=== PATIENT | female | born 1970 | race Hispanic/Latino ===

== ENCOUNTER → 2019-12-25 | Day surgery (SDC) | payer OTHER ==
--- NOTE | 2019-12-22 14:09 | Diagnostic Imaging Report ---
Exam: KUB - 2 views Indication: Preoperative Comparison: None Findings: Bilateral renal calculi measure up to 5 mm at the right lower pole, 9 mm at the left upper pole, 6 mm at the left mid pole, and 10 mm at the left lower pole. Nonobstructive bowel gas pattern. No free air. No acute osseous injury. Partially visualized lung bases are clear. Impression: Bilateral renal calculi measure up to 5 mm on the right and 10 mm on the left. Signed by: Fritz Clemente MD on 12/22/2019 2:05 PM
[~2019-12-25] MED LIST: B&O 60MG R/S 60 MG SUPP PR ONE; CEFTRIAXONE SOD 1 GM/NS 50 ML 50 ML IV ONE; DEXAMETHASONE SOD PHOS INJ 4 MG/ML VIAL ONE; FENTANYL CITRATE/PF 100MCG/2 ML INJ ONE; IOPAMIDOL 300MG/ML 50ML INFUS..BTL IV ONE; LIDOCAINE HCL 2% LOCAL INJ 5 ML SDV VIAL INJ ONE; MIDAZOLAM HCL 2 MG/2 ML VIAL ONE; ONDANSETRON HCL INJ 2MG/ML 2ML 2 MG/ML VIAL ONE; PROPOFOL IV EMULSION 10 MG/ML 20 ML VIAL ONE; SEVOFLURANE INHAL SOLN 250 ML PEN BTL ONE; VENLAFAXINE H37.5 M2 PO
[2019-12-25 13:20] VITALS: BP 137/84
--- NOTE | 2020-02-08 09:37 | Operative Report ---
DATE OF PROCEDURE: 12/25/2019 SURGEON: Jf Walton MD PREOPERATIVE DIAGNOSES: 1. Left nephrolithiasis. 2. Left renal colic. 3. Urinary tract infections. 4. Hematuria. POSTOPERATIVE DIAGNOSES: 1. Left nephrolithiasis. 2. Left renal colic. 3. Urinary tract infections. 4. Hematuria. 5. Grade 1 cystocele. 6. Grade 1 rectocele. OPERATION PERFORMED: Note, these were all staged procedures as part of multi-staged and multi-step process in managing the patient's urolithiasis. 1. Left-sided extracorporeal shockwave lithotripsy (separate procedure performed for the left-sided stone done from separate approach). 2. Cystourethroscopy with bilateral ureteral catheterization and retrograde ureteropyelography (separate procedure performed for hematuria and urinary tract infections). 3. Interpretation of retrograde ureteropyelography. 4. Supervision of fluoroscopy, no radiologist present. 5. Cystourethroscopy with insertion of left indwelling ureteral stent (separate procedure performed to prevent renal colic). 6. Pelvic examination under anesthesia. ANESTHESIA: General. COMPLICATIONS: None. CLINICAL SUMMARY: Cecy Guo is a 49-year-old woman with the above preoperative diagnoses. She is brought for the above procedures. She is aware of the risks of bleeding, infection, injury to adjacent structures, need for additional procedures and elected to proceed. OPERATIVE PROCEDURE IN DETAIL: Informed consent was verified. Cecy Guo was properly identified, taken to the operating room, placed on the cystoscopy table in lithotripsy table in the supine position. Anesthesia was uneventfully begun. The patient's left nephrolithiasis was localized with biplanar fluoroscopy. A total of 3000 shocks were delivered to the 2-stone clusters with fragmentation noted. The patient was then carefully and gently repositioned in dorsal lithotomy position with all pressure points were well padded. Her genitalia were prepared and draped in usual sterile fashion. The cystoscope sheath with obturator in place was atraumatically inserted into the patient's urethra and bladder was drained. Panendoscopy revealed no suspicious mucosal lesions, no tumors, no stones, and no diverticula. Normally positioned configured ureteral orifices were identified. The ureteral catheter was used to cannulate the left ureter and retrograde ureteropyelograms were performed. Then with cystoscopic fluoroscopic guidance, a left-sided indwelling ureteral stent was then placed, it was coiled and the patient's kidney as well as the patient's bladder. The retaining suture was cut short. A ureteral catheter was used to cannulate the right ureter and retrograde ureteropyelograms were performed. Interpretation of retrograde ureteropyelography contrast was instilled in retrograde fashion bilaterally. There were filling defects corresponding to the 2-stone clusters that we lithotripsied in the left hand side along with filling defects that we presumed were due to blood clots. On right hand side, we also identified a stone that we did not treat at this time. Unobstructed drainage was observed fluoroscopically on the right-hand side. The stent was in good position and coiled the patient's kidney as well as the patient's bladder at the end of the case. The patient's bladder was drained. Cystoscope was withdrawn. Pelvic examination revealed a grade 1 cystocele and grade 1 rectocele. No abnormal palpable pelvic masses could be appreciated. There were no obvious mucosal lesions. The patient was then uneventfully reversed from anesthesia and taken to the recovery room in stable condition. There were no complications to the procedure. She tolerated the procedure well. Plans will be to return the patient to the operating room for a right ESWL in conjunction with a left ureteroscopy with holmium laser standby. Jf Walton MD [place]/[facility]NET[facility] /[id number]
== END | disposition home or self-care (01) ==
LOC: OR 07:25 → EDSEX 11:00
PROVIDERS: ATTEND Urology
DX: N20.0 Calculus of kidney (principal); N23 Unspecified renal colic; N39.0 Urinary tract infection, site not specified; R31.9 Hematuria, unspecified; N81.10 Cystocele, unspecified; N81.6 Rectocele; Z11.59 Encounter for screening for other viral diseases; Z87.442 Personal history of urinary calculi; Z01.812 Encounter for preprocedural laboratory examination; Z01.818 Encounter for other preprocedural examination
CPT/HCPCS: 50590; 52332; 74018; 74420; 81025; 87635; C1758; C2617; J0696; J1100; J2001; J2250; J2405; J2704; J3010; Q9967; U0002

== ENCOUNTER → 2020-03-04 | Day surgery (SDC) | payer OTHER ==
--- NOTE | 2020-02-29 11:44 | Diagnostic Imaging Report ---
Abdomen one view KUB INDICATION: ^[id number] ^1100 ^PRE-OP Comparison: 12/22/2019. Discussion: Interval placement of left double-J ureteral stent is noted. Multiple bilateral renal calculi are again noted. Interval fragmentation is noted with multiple stones projecting out within the left mid ureter. On the right there are 2 inferior polar stones measuring up to 0.5 and 0.4 cm. On the left within the renal pelvis there are 2 adjacent 2 to 3 mm stones. In the interpolar region there is a 4 mm stone. Previously identified large superior pole and lower pole stones are not well visualized. Within the mid ureter there are at least 3 separate stones measuring approximately 3, 4 and 6 mm. Large amount of stool is noted within the right colon. Left colon is decompressed. Osseous structures are negative for acute abnormality. IMPRESSION: 1. Interval placement of left double-J ureteral stent. 2. Multiple bilateral renal and left ureteral stones as described above. 3. Moderate colonic stool retention. Signed by: Torin Madrigal MD on 02/29/2020 11:41 AM
[~2020-03-04] MED LIST changes: +ACETAMINOPHEN/CODEINE 300MG - 30MG TAB ONE; +FERROUS SULFAT325 MG PO; +FOLIC ACID PO; +LEVOFLOXACIN 500MG/D5W 100ML 100 ML IV ONE; +METOCLOPRAMIDE HCL 10 MG/2ML VIAL ONE; +OXYBUTYNIN CHLOR5 MG PO; +VITAMIN D3250 MCG PO
[2020-03-04 10:50] VITALS: BP 141/79
--- NOTE | 2020-03-05 03:57 | Operative Report ---
DATE OF PROCEDURE: 03/04/2020 SURGEON: Jf Walton MD PREOPERATIVE DIAGNOSES: 1. Bilateral nephrolithiasis. 2. Left indwelling ureteral stent. 3. Left ureterolithiasis. POSTOPERATIVE DIAGNOSES: 1. Bilateral nephrolithiasis. 2. Left indwelling ureteral stent. 3. Left ureterolithiasis. 4. Grade 1 cystocele. 5. Grade 1 rectocele. OPERATIONS PERFORMED: Note, these were all staged procedures as part of multi-staged and multi-step process in managing the patient's urolithiasis. 1. Right-sided extracorporeal shockwave lithotripsy (separate procedure performed for the right nephrolithiasis). 2. Cystourethroscopy with complicated removal of left indwelling ureteral stent (separate performed for the diagnosis of the stent done with separate scope). 3. Left semi-rigid ureteroscopy with stone manipulation and extraction (separate procedure performed to extract multiple stones from the left distal ureter). 4. Left ureteroscopy with stone fragmentation and manipulation (separate procedure performed for the left nephrolithiasis). 5. Radiological services with supervision and interpretation of ureteroscopy. 6. Interpretation of retrograde ureteropyelography. 7. Supervision of fluoroscopy, no radiologist present. 8. Pelvic examination under anesthesia. ANESTHESIA: General. COMPLICATIONS: None. CLINICAL SUMMARY: Cecy Guo is a 49-year-old woman with severe recurrent urolithiasis. The patient was brought for the above procedures. She is aware of the risks of bleeding, infection, injury to adjacent structures, need for additional procedures and elected to proceed. OPERATIVE PROCEDURE IN DETAIL: Informed consent was verified. Cecy Guo was properly identified, taken to the operating room, placed on the lithotripsy table in supine position. Anesthesia was uneventfully begun. The patient's right nephrolithiasis was localized with biplanar fluoroscopy. A total of 3000 shocks were delivered with excellent fragmentation. The patient was then carefully and gently repositioned in the dorsal lithotomy position. All pressure points well padded. Her genitalia were prepared and draped in usual sterile fashion. The cystoscope sheath with obturator in place was atraumatically inserted the patient's urethra and bladder was drained. Panendoscopy revealed no suspicious mucosal lesions and no stones except for the collection of stone developing on the short string attached to the stent. A guidewire was then placed alongside the stent and guided to the level of the patient's kidney. The stent was then grasped completely, removed, and discarded. A semi-rigid ureteroscope was inserted into the left ureter, this was atraumatically identified several stones, each stone was passed with Nitinol tipless basket and extracted atraumatically. Over secondary guidewire, flexible ureteroscope was then placed and guided to the level of the patient's kidney. We identified in the patient's kidney, several stones, one of the stones we grasped and was pulled out to past the ureteropelvic junction and broken half. This fragmentation allowed the stone to be removed without needing the laser. Multiple passes were made with a flexible ureteroscope until we render the patient is free of any sign of any stone, only very fine sand remained. We thoroughly irrigated the patient's kidney to ensure that all stone material was dislodged, carefully re-examined the ureter. Upon exiting, which exhibited no stones residually. Pelvic examination revealed a grade 1 cystocele, grade 1 rectocele. No abnormal palpable pelvic masses could be appreciated. There were no obvious mucosal lesions. A belladonna and opium suppository were placed. The patient was uneventfully reversed from anesthesia, taken to recovery room in stable condition. There were no complications to the procedure. She tolerated the procedure well. PLANS: Plans will be to follow the patient up in the office in about a month. Plans will also be to undertake an another metabolic stone workup utilizing 24-hour urine testing. Jf Walton MD [facility] /[id number]
== END | disposition home or self-care (01) ==
LOC: OR 05:46
PROVIDERS: ATTEND Urology
DX: N20.0 Calculus of kidney (principal); Z46.6 Encounter for fitting and adjustment of urinary device; N20.1 Calculus of ureter; N81.10 Cystocele, unspecified; N81.6 Rectocele; F32.9 Major depressive disorder, single episode, unspecified; Z01.812 Encounter for preprocedural laboratory examination; Z01.818 Encounter for other preprocedural examination; Z11.59 Encounter for screening for other viral diseases
CPT/HCPCS: 50590; 52352; 74018; 81025 ×2; 88300; C1758; C1766; C1769; J0696; J1100; J1956; J2001; J2250; J2405; J2704; J2765; J3010; Q9967; U0002

== ENCOUNTER 2021-05-02 22:34 | Emergency (ER) | payer OTHER ==
[~2021-05-02] VITALS: Ht 160 cm; Wt 75.3 kg
[~2021-05-02 22:34] MED LIST changes: -ACETAMINOPHEN/CODEINE 300MG - 30MG TAB ONE; -B&O 60MG R/S 60 MG SUPP PR ONE; -CEFTRIAXONE SOD 1 GM/NS 50 ML 50 ML IV ONE; -DEXAMETHASONE SOD PHOS INJ 4 MG/ML VIAL ONE; -FENTANYL CITRATE/PF 100MCG/2 ML INJ ONE; -IOPAMIDOL 300MG/ML 50ML INFUS..BTL IV ONE; -LEVOFLOXACIN 500MG/D5W 100ML 100 ML IV ONE; -LIDOCAINE HCL 2% LOCAL INJ 5 ML SDV VIAL INJ ONE; -METOCLOPRAMIDE HCL 10 MG/2ML VIAL ONE; -MIDAZOLAM HCL 2 MG/2 ML VIAL ONE; -ONDANSETRON HCL INJ 2MG/ML 2ML 2 MG/ML VIAL ONE; -PROPOFOL IV EMULSION 10 MG/ML 20 ML VIAL ONE; -SEVOFLURANE INHAL SOLN 250 ML PEN BTL ONE
[2021-05-02] MEDS ORDERED: SODIUM CHLORIDE 0.9% 1000ML 1,000 ML IV STA (22:43)
[2021-05-02] MEDS ORDERED: KETOROLAC TROMETHAMINE 30 MG/ML VIAL IV STA (22:43)
[2021-05-02] MEDS ORDERED: ONDANSETRON HCL INJ 2MG/ML 2ML 2 MG/ML VIAL IV STA (22:43)
[2021-05-02 22:54] LABS: BASOPHILS % 0.2 % (0.0-1.0); EOSINOPHILS % 0.1 % (0.0-6.0); HEMATOCRIT 40.5 % (34.2-44.1); HEMOGLOBIN 13.2 g/dL (12.0-16.0); LYMPHOCYTES # (AUTO) 1.4 (1.0-3.2); LYMPHOCYTES % 10.8 % (18.0-39.1); MEAN CORPUSCULAR HEMOGLOBIN 27.7 pg (28-32); MEAN CORPUSCULAR HGB CONC 32.6 g/dL (31-35); MEAN CORPUSCULAR VOLUME 84.9 fL (81-99); MONOCYTES # (AUTO) 0.5 (0.2-0.8); NEUTROPHILS # (AUTO) 10.7 (2.1-6.9); NEUTROPHILS % 84.5 % (38.7-80.0); PLATELET COUNT 390 x10e3/uL (140-360); RED BLOOD COUNT 4.77 x10e6/uL (3.6-5.1); RED CELL DISTRIBUTION WIDTH 14.8 % (11.7-14.4)
[2021-05-02] MEDS ORDERED: KETOROLAC TROMETHAMINE 30 MG/ML VIAL ONE (23:00)
[2021-05-02] MEDS ORDERED: ONDANSETRON HCL INJ 2MG/ML 2ML 2 MG/ML VIAL ONE ×2 (23:00→23:32)
[2021-05-02 23:07] LABS: CLARITY,URINE SL CLOUDY (CLEAR); COLOR,URINE YELLOW (YELLOW); KETONES,URINE TRACE (NEGATIVE); LEUKOCYTE ESTERASE ,URINE NEGATIVE (NEGATIVE); NITRITE,URINE NEGATIVE (NEGATIVE); PROTEIN,URINE DIPSTICK TRACE (NEGATIVE); URINE UROBILINOGEN 0.2 mg/dL (0.2 - 1)
[2021-05-02 23:12] LABS: BACTERIA,URINE FEW /HPF; EPITHELIAL CELLS,URINE FEW /LPF; RBC,URINE 21-50 /HPF (0-5); WBC,URINE (MAN) 0-5 /HPF (0-5)
[2021-05-02 23:14] LABS: ALBUMIN 4.3 g/dL (3.5-5.0); ALBUMIN/GLOBULIN RATIO 1.1 (0.8-2.0); ANION GAP 18.6 mmol/L (8-16); CALCIUM 9.5 mg/dL (8.4-10.2); CREATININE, SERUM 1.12 mg/dL (0.57-1.11); POTASSIUM 3.6 mmol/L (3.5-5.1)
[2021-05-02] MEDS ORDERED: Morphine 4mg Syringe 4 MG/ML INJ IV ONE (23:30)
[2021-05-02] MEDS ORDERED: Morphine 4mg Syringe 4 MG/ML INJ ONE (23:32)
[2021-05-03 00:09] VITALS: BP 124/72
[2021-05-03] MEDS ORDERED: KETOROLAC TROME10 MG PO (00:10)
[2021-05-03] MEDS ORDERED: FLOMAX0.4 MG PO (00:10)
[2021-05-03] MEDS ORDERED: ONDANSETRON ODT4 MG PO (00:10)
[2021-05-03] MEDS ORDERED: ACETAMINOPHEN-1 EAC4 PO (00:10)
== END 2021-05-03 00:20 | disposition home or self-care (01) ==
LOC: ER 22:43
DX: M54.50 Low back pain, unspecified (principal); N13.2 Hydronephrosis with renal and ureteral calculous obstruction; R11.2 Nausea with vomiting, unspecified; K76.0 Fatty (change of) liver, not elsewhere classified
CPT/HCPCS: 36415; 74176; 80053; 81001; 84702; 85025; 99284; J1885; J2270; J2405; J7030

== ENCOUNTER → 2022-04-05 | Outpatient (CLI) | payer OTHER ==
[~2022-04-05] MED LIST changes: +ACETAMINOPHEN-1 EAC4 PO; +FLOMAX0.4 MG PO; +KETOROLAC TROME10 MG PO; +ONDANSETRON ODT4 MG PO
== END ==
LOC: RAD 14:15
PROVIDERS: ATTEND Urology
DX: N20.0 Calculus of kidney (principal)
CPT/HCPCS: 74018

== ENCOUNTER 2024-06-23 12:14 | Inpatient (IN) | payer OTHER ==
[~2024-06-23] VITALS: Ht 160 cm; Wt 70.3 kg
[~2024-06-23 12:14] MED LIST changes: +BUPROPION XL150 MG PO
[2024-06-23] MEDS ORDERED: SODIUM CHLORIDE 0.9% 1000ML 1,000 ML IV SCH (13:00)
[2024-06-23] MEDS: ONDANSETRON HCL INJ 2MG/ML 2ML 2 MG/ML VIAL IV STA (13:11)
[2024-06-23] MEDS: KETOROLAC TROMETHAMINE 30 MG/ML VIAL IV STA (13:11)
[2024-06-23 13:12] LABS: BASOPHILS % 0.2 % (0.0-1.0); EOSINOPHILS % 0.1 % (0.0-6.0); HEMOGLOBIN 12.1 g/dL (12.0-16.0); LYMPHOCYTES # (AUTO) 1.4 (1.0-3.2); LYMPHOCYTES % 8.1 % (18.0-39.1); MEAN CORPUSCULAR HEMOGLOBIN 27.2 pg (28-32); MEAN CORPUSCULAR VOLUME 87.6 fL (81-99); MONOCYTES # (AUTO) 1.1 (0.2-0.8); MONOCYTES % 6.8 % (4.4-11.3); NEUTROPHILS # (AUTO) 14.1 (2.1-6.9); NEUTROPHILS % 84.4 % (38.7-80.0); PLATELET COUNT 280 x10e3/uL (140-360); RED BLOOD COUNT 4.45 x10e6/uL (3.6-5.1); RED CELL DISTRIBUTION WIDTH 14.5 % (11.7-14.4); WHITE BLOOD COUNT 16.76 x10e3/uL (4.8-10.8)
[2024-06-23] MEDS: ACETAMINOPHEN 325 MG TAB PO ONE (13:12)
[2024-06-23 13:27] LABS: ALBUMIN 3.4 g/dL (3.5-5.0); ALBUMIN/GLOBULIN RATIO 0.8 (0.8-2.0); ANION GAP 15.5 mmol/L (8-16); BILIRUBIN,TOTAL 0.6 mg/dL (0.2-1.2); CALCIUM 9.2 mg/dL (8.4-10.2); CREATININE, SERUM 0.85 mg/dL (0.57-1.11); POTASSIUM 3.5 mmol/L (3.5-5.1); TOTAL PROTEIN 7.5 g/dL (6.5-8.1)
[2024-06-23 13:31] LABS: CLARITY,URINE CLOUDY (CLEAR); COLOR,URINE YELLOW (YELLOW); LEUKOCYTE ESTERASE ,URINE MODERATE (NEGATIVE); NITRITE,URINE POSITIVE (NEGATIVE); PH,URINE 6.5 (5 - 7)
[2024-06-23 13:32] LABS: BILIRUBIN,URINE NEGATIVE (NEGATIVE); GLUCOSE, URINE NEGATIVE (NEGATIVE); KETONES,URINE 3+ (NEGATIVE); PROTEIN,URINE DIPSTICK 2+ (NEGATIVE); URINE UROBILINOGEN 0.2 mg/dL (0.2 - 1)
[2024-06-23 13:35] LABS: INFLUENZA A AG NEGATIVE (NEGATIVE); INFLUENZA B AG NEGATIVE (NEGATIVE)
[2024-06-23 13:36] LABS: CORONAVIRUS COVID-19 AG NEGATIVE (NEGATIVE)
[2024-06-23 13:44] LABS: BACTERIA,URINE MODERATE /HPF; EPITHELIAL CELLS,URINE FEW /LPF; WBC,URINE (MAN) >50 /HPF (0-5)
[2024-06-23] MEDS: SODIUM CHLORIDE 0.9% 1000ML 1,000 ML IV ONE (14:39)
[2024-06-23] MEDS: SODIUM CHLORIDE 0.9% 1000ML 1,000 ML IV SCH (16:10)
[2024-06-23 16:16] VITALS: TEMP 98.4
[2024-06-23 16:49] VITALS: PULSE 82; RESP 18; O2SAT 98
[2024-06-23 18:12] VITALS: PULSE 86; RESP 16; O2SAT 100
[2024-06-23 18:20] VITALS: PULSE 86; RESP 16
[2024-06-23 20:00] VITALS: BP 137/69; PULSE 96; RESP 18; TEMP 98.2; O2SAT 100
[2024-06-23 20:30] VITALS: BP 137/69; PULSE 96; RESP 18; TEMP 98.2; O2SAT 100
[2024-06-23] MEDS: ONDANSETRON HCL INJ 2MG/ML 2ML 2 MG/ML VIAL IV PRN (21:40)
[2024-06-23] MEDS: Morphine 4mg INJECTION 4 MG/ML INJ IV PRN (21:42)
[2024-06-23] MEDS: ACETAMINOPHEN 325 MG TAB PO PRN (22:27)
[2024-06-24] VITALS (9 sets, daily range): BP systolic 98–131; BP diastolic 57–72; PULSE 63–89; RESP 16–18; TEMP 97.9–99.1; O2SAT 97–100
[2024-06-24 06:11] LABS: BASOPHILS % 0.3 % (0.0-1.0); EOSINOPHILS # (AUTO) 0.1 (0.0-0.4); EOSINOPHILS % 0.6 % (0.0-6.0); HEMATOCRIT 34.6 % (34.2-44.1); HEMOGLOBIN 10.5 g/dL (12.0-16.0); LYMPHOCYTES # (AUTO) 1.5 (1.0-3.2); LYMPHOCYTES % 12.3 % (18.0-39.1); MEAN CORPUSCULAR HEMOGLOBIN 26.9 pg (28-32); MEAN CORPUSCULAR HGB CONC 30.3 g/dL (31-35); MEAN CORPUSCULAR VOLUME 88.7 fL (81-99); MONOCYTES # (AUTO) 1.1 (0.2-0.8); MONOCYTES % 8.9 % (4.4-11.3); NEUTROPHILS # (AUTO) 9.5 (2.1-6.9); NEUTROPHILS % 77.6 % (38.7-80.0); PLATELET COUNT 231 x10e3/uL (140-360); RED CELL DISTRIBUTION WIDTH 14.3 % (11.7-14.4); WHITE BLOOD COUNT 12.24 x10e3/uL (4.8-10.8)
[2024-06-24 06:27] LABS: ANION GAP 13.5 mmol/L (8-16); CALCIUM 8.6 mg/dL (8.4-10.2); CREATININE, SERUM 0.79 mg/dL (0.57-1.11); POTASSIUM 3.5 mmol/L (3.5-5.1)
[2024-06-24] MEDS ORDERED: HYDROCODONE/APAP 10MG-325MG TAB PO PRN (09:00)
[2024-06-24] MEDS ORDERED: ACETAMINOPHEN 1000 MG/100 ML 100 ML IV ONE (16:50)
[2024-06-24] MEDS ORDERED: FENTANYL CITRATE/PF 100MCG/2 ML INJ ONE (16:50)
[2024-06-24] MEDS ORDERED: PROPOFOL IV EMULSION 10 MG/ML 20 ML VIAL ONE (16:50)
[2024-06-24] MEDS ORDERED: LIDOCAINE HCL 2% LOCAL INJ 5 ML SDV VIAL INJ ONE (16:50)
[2024-06-24] MEDS ORDERED: SEVOFLURANE INHAL SOLN 250 ML PEN BTL ONE (16:50)
[2024-06-24] MEDS ORDERED: GENTAMICIN SULFATE 40 MG/ML 2 ML VIAL ONE ×2 (16:57→16:58)
[2024-06-24] MEDS ORDERED: DEXAMETHASONE SOD PHOS INJ 4 MG/ML SDV ONE (17:00)
[2024-06-24] MEDS ORDERED: METOCLOPRAMIDE HCL 10 MG/2ML VIAL ONE (17:00)
[2024-06-24] MEDS ORDERED: KETOROLAC TROMETHAMINE 30 MG/ML VIAL ONE (17:00)
[2024-06-24] MEDS: TAMSULOSIN HCL 0.4 MG CAP PO SCH (17:00)
[2024-06-24] MEDS ORDERED: ONDANSETRON HCL INJ 2MG/ML 2ML 2 MG/ML VIAL ONE (17:00)
[2024-06-25 03:41] VITALS: BP 128/60; PULSE 60; RESP 18; TEMP 97.4; O2SAT 99
[2024-06-25 04:09] VITALS: BP 128/60; PULSE 60; RESP 18; TEMP 97.4; O2SAT 99
[2024-06-25] MEDS: BUPROPION HCL 150 MG TABCR PO SCH (08:23)
[2024-06-25 08:33] VITALS: BP 126/65; PULSE 69; RESP 18; TEMP 99.5; O2SAT 100
[2024-06-25 09:09] VITALS: BP 126/65; PULSE 69; RESP 18; TEMP 97.5; O2SAT 100
[2024-06-25 12:16] VITALS: BP 149/75; PULSE 62; RESP 18; TEMP 97.9; O2SAT 98
== END 2024-06-25 11:55 | disposition home or self-care (01) | DRG 661 ==
LOC: ER 13:01 → ERHOLD 15:18 → MED/SURG2 20:07
PROVIDERS: ADMIT Internal Medicine; ATTEND Internal Medicine
PROC: BT141ZZ Fluoroscopy of Kidneys, Ureters and Bladder using Low Osmolar Contrast (ICD-10-PCS; 2024-06-24)
PROC: 0UJH7ZZ Inspection of Vagina and Cul-de-sac, Via Natural or Artificial Opening (ICD-10-PCS; 2024-06-24)
PROC: 0T788DZ Dilation of Bilateral Ureters with Intraluminal Device, Via Natural or Artificial Opening Endoscopic (ICD-10-PCS; principal; 2024-06-24 16:44)
PROC: 0TC68ZZ Extirpation of Matter from Right Ureter, Via Natural or Artificial Opening Endoscopic (ICD-10-PCS; 2024-06-24 16:44)
DX: N39.0 Urinary tract infection, site not specified (principal); N20.0 Calculus of kidney; Z11.52 Encounter for screening for COVID-19; E05.00 Thyrotoxicosis with diffuse goiter without thyrotoxic crisis or storm
CPT/HCPCS: 36415; 71045; 74176; 74420; 80048; 80053; 81001; 83605; 85025; 87040; 87086; 87186; 88300; 93005; 94799; 99284; C1758; C1769; C2617; J0696; J1100; J1580; J1885; J2003; J2270; J2405; J2765; J7030

== ENCOUNTER → 2024-08-12 | Day surgery (SDC) | payer OTHER ==
[2024-08-10 13:44] LABS: BASOPHILS % 0.5 % (0.0-1.0); EOSINOPHILS # (AUTO) 0.1 (0.0-0.4); EOSINOPHILS % 1.6 % (0.0-6.0); HEMATOCRIT 34.3 % (34.2-44.1); HEMOGLOBIN 10.7 g/dL (12.0-16.0); LYMPHOCYTES # (AUTO) 2.5 (1.0-3.2); LYMPHOCYTES % 32.7 % (18.0-39.1); MEAN CORPUSCULAR HEMOGLOBIN 26.3 pg (28-32); MEAN CORPUSCULAR HGB CONC 31.2 g/dL (31-35); MEAN CORPUSCULAR VOLUME 84.3 fL (81-99); MONOCYTES # (AUTO) 0.4 (0.2-0.8); MONOCYTES % 4.6 % (4.4-11.3); NEUTROPHILS # (AUTO) 4.6 (2.1-6.9); NEUTROPHILS % 60.2 % (38.7-80.0); PLATELET COUNT 449 x10e3/uL (140-360); RED BLOOD COUNT 4.07 x10e6/uL (3.6-5.1); WHITE BLOOD COUNT 7.58 x10e3/uL (4.8-10.8)
[2024-08-10 14:18] LABS: ANION GAP 17.8 mmol/L (8-16); CALCIUM 8.8 mg/dL (8.4-10.2); CREATININE, SERUM 0.9 mg/dL (0.57-1.11); POTASSIUM 3.8 mmol/L (3.5-5.1)
[~2024-08-12] MED LIST changes: +ACETAMINOPHEN 1000 MG/100 ML 100 ML IV ONE; +AZO BLADDER CO300 MG PO; +DEXAMETHASONE SOD PHOS INJ 4 MG/ML SDV ONE; +FAMOTIDINE 20 MG/2 ML VIAL IV ONE; +FENTANYL CITRATE/PF 100MCG/2 ML INJ ONE; +KETOROLAC TROMETHAMINE 30 MG/ML VIAL ONE; +LIDOCAINE HCL 2% LOCAL INJ 5 ML SDV VIAL INJ ONE; +MIDAZOLAM HCL 2 MG/2 ML VIAL ONE; +ONDANSETRON HCL INJ 2MG/ML 2ML 2 MG/ML VIAL ONE; +PROPOFOL IV EMULSION 10 MG/ML 20 ML VIAL ONE; +SEVOFLURANE INHAL SOLN 250 ML PEN BTL ONE
[2024-08-12] MEDS: GENTAMICIN 80MG/NS 100 ML 200 ML IV ONE (06:03)
[2024-08-12] MEDS: LACTATED RINGER'S 1,000 ML ONE (06:03)
[2024-08-12 08:51] VITALS: TEMP 97.5
[2024-08-12] MEDS: PHENAZOPYRIDINE HCL 100 MG TAB ONE (09:27)
[2024-08-12] MEDS: ACETAMINOPHEN/CODEINE 300MG - 30MG TAB ONE (09:32)
[2024-08-12 09:36] VITALS: BP 144/80; PULSE 60; RESP 18; O2SAT 100
== END | disposition home or self-care (01) ==
LOC: OR 05:31
PROVIDERS: ATTEND Urology
DX: N20.0 Calculus of kidney (principal); N13.30 Unspecified hydronephrosis; Z46.6 Encounter for fitting and adjustment of urinary device; N28.89 Other specified disorders of kidney and ureter; N81.10 Cystocele, unspecified; N81.6 Rectocele; N36.41 Hypermobility of urethra; E05.00 Thyrotoxicosis with diffuse goiter without thyrotoxic crisis or storm; Z78.0 Asymptomatic menopausal state; Z01.812 Encounter for preprocedural laboratory examination; Z01.818 Encounter for other preprocedural examination; Z79.899 Other long term (current) drug therapy
CPT/HCPCS: 36415; 50590; 52353; 74018; 80048; 83970; 84550; 85025; 87086; 88300; C1766; C1769; J0131; J1100; J1580; J1885; J2003; J2250; J2405; J2704; J3010; J7121